=== PATIENT | female | born 2000 | race Caucasian/White ===

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

== ENCOUNTER → 2019-07-11 | Outpatient (CLI) | payer BC ==
--- NOTE | 2019-07-11 13:02 | CT ---
EXAMINATION TYPE: CT soft tissue neck w con DATE OF EXAM: 07/11/2019 HISTORY: Right chronic sore throat. COMPARISON: NONE CT DLP: 497.6 mGycm. Automated Exposure Control for Dose Reduction was Utilized. TECHNIQUE: CT scan of the neck is performed with IV Contrast, patient injected with 100 mL of Isovue 300, axial images are obtained, coronal and sagittal reformatted images are reviewed. FINDINGS: Airway: Patency and nasopharyngeal and oropharyngeal airway extending into hypopharyngeal airway. Reg ion of epiglottis and vallecula followed with an normal limits. Thyroid gland unremarkable. Lung apic es are clear. Parotid/submandibular glands: No gross abnormality seen. Carotid/Vascular Structures: No significant abnormality. Osseous Structures: No significant abnormality. Other: Mild to moderate mucosal thickening involving the left maxillary sinus with some dependent flu id otherwise paranasal sinuses are clear. Parapharyngeal fat spaces are maintained. No suspicious greater than 1 cm neck adenopathy. IMPRESSION: Acute on chronic left maxillary sinus disease otherwise unremarkable study.
== END | disposition home or self-care (01) ==
LOC: RADCTMAIN 11:27
PROVIDERS: ATTEND Otolaryngology
DX: J32.0 Chronic maxillary sinusitis (principal)
CPT/HCPCS: 70491; Q9967

== ENCOUNTER → 2022-01-03 | Outpatient (CLI) | payer BC ==
[2022-01-03 08:54] LABS: Partial Thromboplastin Time 24.5 sec (22.0-30.0); Prothrombin Time 10.7 sec (9.0-12.0)
[2022-01-03 11:16] LABS: Chol/HDL Ratio 2.78 Ratio; HCT 44.8 % (37.2-46.3); HGB 14.7 g/dL (12.0-15.0); LDL Cholesterol,Calculated 95.1 mg/dL (0.0-131.0); MCH 29.9 pg (27.0-32.0); MCHC 32.8 g/dL (32.0-37.0); MCV 91.1 fL (80.0-97.0); Mean Platelet Volume 13.3 fL (9.5-12.2); NRBC Per 100 WBC 0 /100 WBCS (0.0-0.0); Platelet Count 161 X 10*3/uL (140-440); Prealbumin 22.9 mg/dL (18.0-42.0); RBC 4.92 X 10*6/uL (4.10-5.20); RDW 12.3 % (11.5-14.5); VLDL Calculation 11.76 mg/dL (5.00-40.00); WBC 4.15 X 10*3/uL (4.50-10.00)
[2022-01-03 11:18] LABS: % Iron Saturation 17.41 (12.00-45.00); ALT 23 U/L (8-44); AST 19 U/L (13-35); African American GFR (CKD) 105.2 (60.0-200.0); Albumin 4.5 g/dL (3.8-4.9); Alkaline Phosphatase 59 U/L (41-126); BUN/Creat Ratio 15.11 Ratio (12.00-20.00); Blood Urea Nitrogen 13.6 mg/dL (9.0-27.0); Calcium 9.5 mg/dL (8.7-10.3); Carbon Dioxide 25.4 mmol/L (20.0-27.5); Chloride 107 mmol/L (96-109); Ferritin 23.8 ng/mL (10.0-291.0); Globulin 2.5 g/dL (1.6-3.3); Glucose 101 mg/dL (70-110); Iron 88 ug/dL (50-170); Magnesium 1.9 mg/dL (1.5-2.4); Non-African American GFR(CKD) 90.8 (60.0-200.0); Phosphorus 3.8 mg/dL (2.4-5.1); Potassium 4.8 mmol/L (3.5-5.5); Sodium 142 mmol/L (135-145); Total Iron Binding Capacity 505 ug/dL (228-460)
[2022-01-04 14:33] LABS: Zinc, Serum 65 ug/dL (60-130)
== END | disposition home or self-care (01) ==
LOC: LABWHC1 07:40
PROVIDERS: ATTEND Surgery Plastic and Reconstructive Surgery
DX: E66.01 Morbid (severe) obesity due to excess calories (principal); E56.1 Deficiency of vitamin K; E89.1 Postprocedural hypoinsulinemia; D50.8 Other iron deficiency anemias; K90.89 Other intestinal malabsorption; E55.9 Vitamin D deficiency, unspecified; K74.1 Hepatic sclerosis; N19 Unspecified kidney failure; K50.90 Crohn's disease, unspecified, without complications
CPT/HCPCS: 36415; 80053; 80061; 82306; 82525; 82607; 82728; 82746; 83036; 83540; 83550; 83735; 83970; 84100; 84134; 84255; 84425; 84443; 84590; 84597; 84630; 85027; 85610; 85730

== ENCOUNTER → 2022-02-14 | Outpatient (CLI) | payer BC ==
--- NOTE | 2022-02-15 04:49 | MR ---
EXAMINATION TYPE: MR pelvis wo/w con DATE OF EXAM: 02/14/2022 COMPARISON: None HISTORY: Abnormal xray, possible mass on right ischium. CONTRAST: Standard multiplanar, multisequence MRI departmental protocol images were obtained without contrast a nd with 8 mL intravenous Gadavist gadolinium contrast. The urinary bladder is almost empty. Uterus is anteverted. No evidence of a pelvic mass. No free flui d in the pelvis. No evidence of inguinal hernia. There are a few bilateral inguinal lymph nodes measu re up to 2 cm in length. There is a septated 3 x 2 cm oval-shaped sharply marginated lesion involving the right ischium. This has some internal cystic changes. No evidence of any adjacent bone edema. No pathologic enhancement. No evidence of a soft tissue mass. IMPRESSION: Slightly expansile right ischial lesion has a bubbly appearance and the features appear benign. Diffe rential possibilities to consider would be chondromyxoid fibroma, aneurysmal bone cyst.
== END | disposition home or self-care (01) ==
LOC: RADMRIMAIN 09:20
PROVIDERS: ATTEND Family Medicine
DX: R19.09 Other intra-abdominal and pelvic swelling, mass and lump (principal)
CPT/HCPCS: 72197; A9585

== ENCOUNTER 2022-03-14 06:50 | Day surgery (SDC) | payer BC ==
[2022-03-13 10:55] VITALS: BMI 24.3
[~2022-03-14 06:50] MED LIST: LACTATED RINGERS 1,000 ML IV SCH; LIDOCAINE 1% (10MG/ML) FOR IV START INTRADERMA PRN
[2022-03-14 07:36] VITALS: TEMP 98.6
--- NOTE | 2022-03-14 07:44 | P.GSHP ---
History of Present Illness H&P Date: 03/14/22 CHIEF COMPLAINT: GERD HISTORY OF PRESENT ILLNESS: The patient is a 22-year-old female who presents reports gastroesophageal reflux disease. Upper endoscopy was offered for further evaluation and management. PAST MEDICAL HISTORY: Please see list. PAST SURGICAL HISTORY: Please see list. MEDICATIONS: Please see list. ALLERGIES: Please see list. SOCIAL HISTORY: No illicit drug use FAMILY HISTORY: No reports of Crohn disease or ulcerative colitis. REVIEW OF ORGAN SYSTEMS: CONSTITUTIONAL: No reports of fevers or chills. GI: Denies any blood in stools or constipation. PHYSICAL EXAM: VITAL SIGNS: Stable GENERAL: Well-developed and pleasant in no acute distress. HEENT: No scleral icterus. Extraocular movements grossly intact. Moist buccal mucosa. NECK: Supple without lymphadenopathy. CHEST: Unlabored respirations. Equal bilateral excursions. CARDIOVASCULAR: Regular rate and rhythm. Distal 2+ pulses. ABDOMEN: Soft, nondistended. MUSCULOSKELETAL: No clubbing, cyanosis, or edema. ASSESSMENT: 1. Gastroesophageal reflux disease PLAN: 1. Recommend proceeding with an upper endoscopy Past Medical History Past Medical History: No Reported History Additional Past Medical History / Comment(s): states not absorbing iron. History of Any Multi-Drug Resistant Organisms: None Reported Past Surgical History: No Surgical Hx Reported Additional Past Anesthesia/Blood Transfusion Reaction / Comment(s): no anesthesia hx. Past Psychological History: No Psychological Hx Reported Smoking Status: Never smoker Past Alcohol Use History: None Reported Past Drug Use History: None Reported - Past Family History Mother Family Medical History: No Reported History Medications and Allergies Home Medications Medication Instructions Recorded Confirmed Type Control Pills 1 dose PO HS 03/13/22 03/13/22 History Allergies Allergy/AdvReac Type Severity Reaction Status Date / Time allantoin [From Orajel] Allergy Anaphylaxis Verified 03/14/22 07:15 benzalkonium chloride Allergy Anaphylaxis Verified 03/14/22 07:15 [From Orajel] benzocaine [From Orajel] Allergy Anaphylaxis Verified 03/14/22 07:15 carbamide peroxide Allergy Anaphylaxis Verified 03/14/22 07:15 [From Orajel] zinc chloride [From Orajel] Allergy Anaphylaxis Verified 03/14/22 07:15 Surgical - Exam Vital Signs Temp Pulse Resp BP Pulse Ox 98.6 F 75 16 117/61 100 03/14/22 07:25 08/31/22 07:25 03/14/22 07:25 03/14/22 07:25 03/14/22 07:25
[2022-03-14] MEDS ORDERED: fentaNYL (PF) 50 MCG/ML 2 ML AMP ONE (08:10)
[2022-03-14] MEDS ORDERED: LIDOCAINE 2% INJ 20 MG/ML (2 ML VIAL) ONE (08:10)
[2022-03-14] MEDS ORDERED: MIDAZOLAM 2 MG/2 ML VIAL ONE (08:10)
[2022-03-14] MEDS ORDERED: PROPOFOL 10 MG/ML 20 ML VIAL IV ONE (08:10)
--- NOTE | 2022-03-14 08:24 | P.PCN ---
Date of Procedure: 03/14/22 Description of Procedure: PREOPERATIVE DIAGNOSIS: Gastroesophageal reflux disease. Anemia POSTOPERATIVE DIAGNOSIS: Gastroesophageal reflux disease. Anemia OPERATION: Esophagogastroduodenoscopy with biopsies along stomach, duodenum, esophagus SURGEON: Marisela Lewis MD ANESTHESIA: MAC. INDICATIONS: The patient is a 22-year-old female who presents with anemia, epigastric abdominal pain and reflux disease. Benefits and risks of the procedure were described. Informed consent was obtained. DESCRIPTION: The patient was brought into the endoscopy suite and laid in the left lateral decubitus position. An Olympus gastroscope was passed along the posterior oropharynx down to the distal esophagus where the squamocolumnar junction was encountered at 41 cm from the incisors. The stomach was entered and no bile reflux was found. Additional findings are listed below. Biopsies with cold forceps were obtained of the duodenum, stomach, esophagus. The first through third portion of the duodenum was examined. Retroflexion of the scope confirmed Hill grade 1 lower esophageal valve. The squamocolumnar junction demonstrated LA grade A erosive esophagitis. The stomach was desufflated. The patient tolerated the procedure well. FINDINGS: Squamocolumnar junction 41 cm from the incisors. Diaphragmatic hiatus at 41 cm. Hill grade 1 lower esophageal valve. LA grade A erosive esophagitis. Random biopsies obtained of the duodenum for celiac disease Random biopsies obtained of the stomach for anemia Random biopsies of esophagus obtained for eosinophilic esophagitis RECOMMENDATIONS: Upper endoscopy as needed. Plan - Discharge Summary New Discharge Prescriptions: No Action Control Pills 1 dose PO HS Discharge Medication List Control Pills 1 dose PO HS 03/13/22 [History] Patient Instructions/Handouts: *Surgery [facility] - (Anesthesia) Endoscopy Discharge Instructions, Upper Endoscopy (DC)
[2022-03-14 08:44] VITALS: BP 105/67; PULSE 57; RESP 16
== END 2022-03-14 09:00 | disposition home or self-care (01) ==
LOC: ORWHC2ENDO 06:50
PROVIDERS: ATTEND Surgery Plastic and Reconstructive Surgery
DX: K29.80 Duodenitis without bleeding (principal); K29.50 Unspecified chronic gastritis without bleeding; K21.00 Gastro-esophageal reflux disease with esophagitis, without bleeding; K22.10 Ulcer of esophagus without bleeding; K90.0 Celiac disease; D50.9 Iron deficiency anemia, unspecified; Z88.8 Allergy status to other drugs, medicaments and biological substances; Z88.6 Allergy status to analgesic agent
CPT/HCPCS: 88305; 84703; 43239; J2250; J3010; J2704; J2001